=== PATIENT | female | born 1935 | race Caucasian/White ===

== ENCOUNTER 2023-10-10 07:15 | Emergency (ER) | payer MEDICARE ==
[~2023-10-10] VITALS: Ht 157.5 cm; Wt 55.5 kg
[~2023-10-10 07:15] MED LIST: AMLO2.5T2 PO; APIX2.5T PO; DORZ10DR10 EACHEYE; LABE100T8 PO; LOSA-415 PO; PRAV40TA3 PO; XAL0.005OS OP
[2023-10-10] MEDS ORDERED: iohexol 350MG/ML 100ml bottle IV ONE (07:52)
[2023-10-10 07:53] LABS: BASOPHILS % (AUTO) 0.8 % (0-1); EOSINOPHILS # (AUTO) 0.1 X10'3 (0-0.9); EOSINOPHILS % (AUTO) 1.5 % (0-6); HEMATOCRIT 41.4 % (35.0-45.0); HEMOGLOBIN 13.7 g/dl (12.0-16.0); LYMPHOCYTES # (AUTO) 2.1 X10'3 (1.1-4.8); LYMPHOCYTES % (AUTO) 46.4 % (21-51); MEAN CORPUSCULAR HEMOGLOBIN 29.4 PG (27.0-31.0); MEAN CORPUSCULAR HGB CONC 33.2 g/dL (33.0-36.5); MEAN CORPUSCULAR VOLUME 88.6 FL (78-98); MEAN PLATELET VOLUME 7.7 FL (7.4-10.4); MONOCYTES # (AUTO) 0.5 X10'3 (0-0.9); MONOCYTES % (AUTO) 10.8 % (2-12); NEUTROPHILS # (AUTO) 1.9 X10'3 (1.8-7.7); NEUTROPHILS % (AUTO) 40.5 % (42-75); PLATELET COUNT 206 X10'3 (140-440); RED BLOOD COUNT 4.67 X10'6 (4.20-5.60); RED CELL DISTRIBUTION WIDTH 14.7 % (11.5-14.5); WHITE BLOOD COUNT 4.6 X10'3 (4.5-11.0)
[2023-10-10 08:12] LABS: PROTHROMBIN TIME 10.7 SECONDS (9.0-12.0)
[2023-10-10 09:05] LABS: BILIRUBIN,URINE NEGATIVE (Neg); CLARITY,URINE CLEAR (Clear); COLOR,URINE STRAW (Yellow); GLUCOSE, URINE NEGATIVE (Neg); KETONES,URINE NEGATIVE (Neg); LEUKOCYTE ESTERASE ,URINE NEGATIVE (Neg); NITRITES, URINE NEGATIVE (Neg); OCCULT BLOOD,URINE TRACE-INTACT (Neg); PROTEIN,URINE NEGATIVE (Neg); UROBILINOGEN,URINE 0.2 E.U/dL (0.2-1.0)
[2023-10-10 09:06] LABS: ALANINE AMINOTRANSFERASE 19 U/L (12-78); ALBUMIN 3.8 G/DL (3.4-5.0); ALBUMIN/GLOBULIN RATIO 1.1 (1.1-1.5); ALKALINE PHOSPHATASE 65 IU/L (46-116); ANION GAP 10 (8-16); ASPARTATE AMINO TRANSFERASE 21 U/L (10-37); BLOOD UREA NITROGEN 20 MG/DL (7-18); BUN/CREATININE RATIO 16.7 (10.0-20.0); CALCIUM 9.1 MG/DL (8.5-10.1); CHLORIDE 105 MMOL/L (99-107); GLUCOSE 101 MG/DL (70-104); POTASSIUM 3.3 MMOL/L (3.5-5.1); SODIUM 139 MMOL/L (135-145); TOTAL CARBON DIOXIDE 24.5 MMOL/L (24-32); TOTAL PROTEIN 7.3 G/DL (6.4-8.2); eCRCL 26 ML/MIN; eGFR 42 ML/MIN
[2023-10-10 09:14] LABS: UA COLLECTION TYPE CLN CATCH MIDSTREAM
[2023-10-10 09:15] LABS: BACTERIA,URINE NONE SEEN /HPF (Neg); RBC,URINE 0-2 /HPF (0-2); SQUAMOUS EPITHELIAL CELL,UR FEW /LPF (FEW); WBC,URINE 0-4 /HPF (0-4)
[2023-10-10 09:34] VITALS: TEMP 98; O2SAT 95
[2023-10-10] MEDS: potassium Cl 20 mEq SR tablet PO STA (10:24)
[2023-10-10 12:07] VITALS: BP 140/82; PULSE 104; RESP 22
== END 2023-10-10 11:55 | disposition home or self-care (01) ==
LOC: ER 07:16
DX: R53.1 Weakness (principal); I48.91 Unspecified atrial fibrillation; R47.81 Slurred speech
CPT/HCPCS: 36415; 70450; 70496; 70498; 71045; 80053; 81001; 82948; 85025; 85610; 86885; 86900; 86901; 93005; 99285; J3490; Q9967

== ENCOUNTER 2023-10-11 10:38 | Emergency (ER) | payer MEDICARE ==
[~2023-10-11] VITALS: Ht 157.5 cm; Wt 54.3 kg
[2023-10-11 11:33] VITALS: TEMP 98
[2023-10-11 12:54] LABS: BASOPHILS % (AUTO) 0.7 % (0-1); EOSINOPHILS % (AUTO) 0.4 % (0-6); HEMATOCRIT 40.8 % (35.0-45.0); HEMOGLOBIN 13.6 g/dl (12.0-16.0); LYMPHOCYTES # (AUTO) 1.1 X10'3 (1.1-4.8); LYMPHOCYTES % (AUTO) 19.6 % (21-51); MEAN CORPUSCULAR HEMOGLOBIN 29.3 PG (27.0-31.0); MEAN CORPUSCULAR HGB CONC 33.4 g/dL (33.0-36.5); MEAN CORPUSCULAR VOLUME 87.7 FL (78-98); MONOCYTES # (AUTO) 0.4 X10'3 (0-0.9); MONOCYTES % (AUTO) 7.5 % (2-12); NEUTROPHILS # (AUTO) 4.1 X10'3 (1.8-7.7); NEUTROPHILS % (AUTO) 71.8 % (42-75); PLATELET COUNT 215 X10'3 (140-440); RED BLOOD COUNT 4.65 X10'6 (4.20-5.60); WHITE BLOOD COUNT 5.7 X10'3 (4.5-11.0)
[2023-10-11 13:09] LABS: ALANINE AMINOTRANSFERASE 15 U/L (12-78); ALBUMIN 3.7 G/DL (3.4-5.0); ALBUMIN/GLOBULIN RATIO 1.2 (1.1-1.5); ALKALINE PHOSPHATASE 69 IU/L (46-116); ANION GAP 11 (8-16); ASPARTATE AMINO TRANSFERASE 23 U/L (10-37); BILIRUBIN,TOTAL 0.9 MG/DL (0.1-1.0); BLOOD UREA NITROGEN 27 MG/DL (7-18); BUN/CREATININE RATIO 20.8 (10.0-20.0); CALCIUM 8.7 MG/DL (8.5-10.1); CHLORIDE 106 MMOL/L (99-107); GLUCOSE 116 MG/DL (70-104); POTASSIUM 3.9 MMOL/L (3.5-5.1); SODIUM 141 MMOL/L (135-145); TOTAL CARBON DIOXIDE 24.4 MMOL/L (24-32); TOTAL PROTEIN 6.9 G/DL (6.4-8.2); eCRCL 24 ML/MIN; eGFR 39 ML/MIN
[2023-10-11 13:15] LABS: APTT 26 SECONDS (22-32)
[2023-10-11 13:26] LABS: THYROID STIMULATING HORMONE 1.12 ulU/ml (0.34-4.50)
[2023-10-11 15:14] LABS: BILIRUBIN,URINE NEGATIVE (Neg); CLARITY,URINE SLIGHTLY CLOUDY (Clear); COLOR,URINE YELLOW (Yellow); GLUCOSE, URINE NEGATIVE (Neg); KETONES,URINE 15 mg/dl (Neg); LEUKOCYTE ESTERASE ,URINE NEGATIVE (Neg); NITRITES, URINE NEGATIVE (Neg); OCCULT BLOOD,URINE TRACE-INTACT (Neg); PROTEIN,URINE 30 mg/dl (Neg); UROBILINOGEN,URINE 0.2 E.U/dL (0.2-1.0)
[2023-10-11 15:19] LABS: UA COLLECTION TYPE CLN CATCH MIDSTREAM
[2023-10-11 15:21] LABS: CAL OXALATE CRYSTALS FEW /HPF (NEGATIVE)
[2023-10-11 15:22] LABS: BACTERIA,URINE FEW /HPF (Neg); CELLULAR CAST 0-4 /LPF (NEGATIVE); SQUAMOUS EPITHELIAL CELL,UR FEW /LPF (FEW); WBC,URINE 0-4 /HPF (0-4)
[2023-10-11 15:23] LABS: AMORPHOUS URATES 1+; COARSE GRANULAR CAST 0-3 /LPF (NEGATIVE); MUCUS STRANDS FEW /LPF (Neg)
[2023-10-11 16:11] VITALS: BP 142/84; PULSE 87; RESP 16; O2SAT 96
== END 2023-10-11 16:17 | disposition home or self-care (01) ==
LOC: ER 10:39
DX: R53.81 Other malaise (principal); R47.81 Slurred speech; Z88.8 Allergy status to other drugs, medicaments and biological substances; Z79.899 Other long term (current) drug therapy
CPT/HCPCS: 36415; 80053; 81001; 84439; 84443; 84484; 85025; 85610; 85730; 87502; 87503; 93005; 99285

== ENCOUNTER 2023-10-15 05:58 | Emergency (ER) | payer MEDICARE ==
[~2023-10-15] VITALS: Ht 162.6 cm; Wt 54.8 kg
[2023-10-15] MEDS ORDERED: PRED20TA PO (07:10)
[2023-10-15] MEDS ORDERED: AMOX-117 PO (07:10)
[2023-10-15 07:55] VITALS: BP 156/85; PULSE 83; RESP 16; TEMP 98.8; O2SAT 98
== END 2023-10-15 07:56 | disposition home or self-care (01) ==
LOC: ER 05:58
DX: K14.0 Glossitis (principal); Z91.018 Allergy to other foods
CPT/HCPCS: 99283

== ENCOUNTER 2024-01-09 03:58 | Emergency (ER) | payer MEDICARE ==
[~2024-01-09] VITALS: Ht 157.5 cm; Wt 56.4 kg
[2024-01-09 03:59] VITALS: TEMP 98.9
[2024-01-09 04:35] LABS: HEMOGLOBIN 13.7 g/dl (12.0-16.0); MEAN PLATELET VOLUME 8.2 FL (7.4-10.4)
[2024-01-09 04:36] LABS: BASOPHILS # (AUTO) 0.1 X10'3 (0-0.2); EOSINOPHILS # (AUTO) 0.1 X10'3 (0-0.9); EOSINOPHILS % (AUTO) 2.2 % (0-6); HEMATOCRIT 41.8 % (35.0-45.0); LYMPHOCYTES # (AUTO) 1.4 X10'3 (1.1-4.8); LYMPHOCYTES % (AUTO) 21.2 % (21-51); MEAN CORPUSCULAR HEMOGLOBIN 29.4 PG (27.0-31.0); MEAN CORPUSCULAR HGB CONC 32.9 g/dL (33.0-36.5); MEAN CORPUSCULAR VOLUME 89.3 FL (78-98); MONOCYTES # (AUTO) 0.8 X10'3 (0-0.9); MONOCYTES % (AUTO) 12.1 % (2-12); NEUTROPHILS # (AUTO) 4.2 X10'3 (1.8-7.7); NEUTROPHILS % (AUTO) 63.5 % (42-75); PLATELET COUNT 213 X10'3 (140-440); RED BLOOD COUNT 4.67 X10'6 (4.20-5.60); RED CELL DISTRIBUTION WIDTH 14.8 % (11.5-14.5); WHITE BLOOD COUNT 6.5 X10'3 (4.5-11.0)
[2024-01-09 04:46] LABS: PROTHROMBIN TIME 10.4 SECONDS (9.0-12.0)
[2024-01-09 04:54] LABS: ALBUMIN 3.7 G/DL (3.4-5.0); ANION GAP 9 (8-16); BLOOD UREA NITROGEN 16 MG/DL (7-18); BUN/CREATININE RATIO 16.3 (10.0-20.0); CALCIUM 9.6 MG/DL (8.5-10.1); CHLORIDE 105 MMOL/L (99-107); CREATININE 0.98 MG/DL (0.40-0.90); GLUCOSE 107 MG/DL (70-104); LIPASE 83 U/L (16-77); PRO BRAIN NATRIURETIC PEPTIDE 560 PG/ML (0-450); SODIUM 141 MMOL/L (135-145); TOTAL CARBON DIOXIDE 26.7 MMOL/L (24-32); eCRCL 31 ML/MIN; eGFR 54 ML/MIN
[2024-01-09 04:55] LABS: POTASSIUM 3.8 MMOL/L (3.5-5.1)
[2024-01-09 05:56] LABS: BILIRUBIN,URINE NEGATIVE (Neg); CLARITY,URINE CLEAR (Clear); COLOR,URINE STRAW (Yellow); GLUCOSE, URINE NEGATIVE (Neg); KETONES,URINE NEGATIVE (Neg); LEUKOCYTE ESTERASE ,URINE NEGATIVE (Neg); NITRITES, URINE NEGATIVE (Neg); OCCULT BLOOD,URINE TRACE-INTACT (Neg); PROTEIN,URINE NEGATIVE (Neg); UROBILINOGEN,URINE 0.2 E.U/dL (0.2-1.0)
[2024-01-09 05:57] LABS: UA COLLECTION TYPE NON-SPECIFIED
[2024-01-09 06:02] VITALS: BP 141/80; PULSE 79; RESP 20; O2SAT 96
[2024-01-09 06:05] LABS: BACTERIA,URINE NONE SEEN /HPF (Neg); MUCUS STRANDS NONE SEEN /LPF (Neg); RBC,URINE 0-2 /HPF (0-2); SQUAMOUS EPITHELIAL CELL,UR NONE SEEN /LPF (FEW); WBC,URINE 0-4 /HPF (0-4)
== END 2024-01-09 06:16 | disposition home or self-care (01) ==
LOC: ER 03:59
DX: R10.84 Generalized abdominal pain (principal); Z20.822 Contact with and (suspected) exposure to COVID-19; I49.3 Ventricular premature depolarization; I48.91 Unspecified atrial fibrillation; Z91.018 Allergy to other foods; Z79.899 Other long term (current) drug therapy
CPT/HCPCS: 36415; 71045; 80048; 81001; 83690; 83735; 83880; 84145; 84484; 85025; 85610; 87502; 87503; 87811; 93005; 99285

== ENCOUNTER 2024-01-20 06:42 | Emergency (ER) | payer MEDICARE ==
[~2024-01-20] VITALS: Ht 157.5 cm; Wt 48.0 kg
[2024-01-20 09:04] LABS: ALBUMIN 3.8 G/DL (3.4-5.0); ANION GAP 11 (8-16); BLOOD UREA NITROGEN 19 MG/DL (7-18); BUN/CREATININE RATIO 20.2 (10.0-20.0); CALCIUM 9.6 MG/DL (8.5-10.1); CHLORIDE 104 MMOL/L (99-107); CREATININE 0.94 MG/DL (0.40-0.90); GLUCOSE 108 MG/DL (70-104); POTASSIUM 3.4 MMOL/L (3.5-5.1); SODIUM 141 MMOL/L (135-145); TOTAL CARBON DIOXIDE 25.9 MMOL/L (24-32); eCRCL 31 ML/MIN; eGFR 56 ML/MIN
[2024-01-20 09:59] VITALS: BP 163/102; PULSE 109; RESP 15; TEMP 97.9; O2SAT 97
== END 2024-01-20 10:02 | disposition home or self-care (01) ==
LOC: ER 06:42
DX: R53.1 Weakness (principal); Z91.09 Other allergy status, other than to drugs and biological substances; Z79.899 Other long term (current) drug therapy
CPT/HCPCS: 36415; 71045; 80048; 84484; 87070; 93005; 99285

== ENCOUNTER 2024-07-16 23:06 | Inpatient (IN) | payer MEDICARE ==
[~2024-07-16] VITALS: Ht 170.2 cm; Wt 50.0 kg
[2024-07-16 23:43] LABS: BASOPHILS # (AUTO) 0.1 X10'3 (0-0.2); BASOPHILS % (AUTO) 0.7 % (0-1); EOSINOPHILS % (AUTO) 0.4 % (0-6); HEMATOCRIT 36.9 % (35.0-45.0); HEMOGLOBIN 12.8 g/dl (12.0-16.0); LYMPHOCYTES # (AUTO) 1.5 X10'3 (1.1-4.8); LYMPHOCYTES % (AUTO) 20.4 % (21-51); MEAN CORPUSCULAR HEMOGLOBIN 30.1 PG (27.0-31.0); MEAN CORPUSCULAR HGB CONC 34.7 g/dL (33.0-36.5); MEAN CORPUSCULAR VOLUME 86.8 FL (78-98); MEAN PLATELET VOLUME 7.5 FL (7.4-10.4); MONOCYTES # (AUTO) 0.5 X10'3 (0-0.9); MONOCYTES % (AUTO) 6.9 % (2-12); NEUTROPHILS # (AUTO) 5.1 X10'3 (1.8-7.7); NEUTROPHILS % (AUTO) 71.6 % (42-75); PLATELET COUNT 262 X10'3 (140-440); RED BLOOD COUNT 4.25 X10'6 (4.20-5.60); RED CELL DISTRIBUTION WIDTH 14.4 % (11.5-14.5); WHITE BLOOD COUNT 7.2 X10'3 (4.5-11.0)
[2024-07-16 23:55] LABS: APTT 23 SECONDS (22-32); INR 1.1 INR; PROTHROMBIN TIME 11.5 SECONDS (9.0-12.0)
[2024-07-17 00:01] LABS: ALBUMIN 3.8 G/DL (3.4-5.0); ANION GAP 13 (8-16); BLOOD UREA NITROGEN 24 MG/DL (7-18); BUN/CREATININE RATIO 17.1 (10.0-20.0); CALCIUM 9.7 MG/DL (8.5-10.1); CHLORIDE 101 MMOL/L (99-107); GLUCOSE 110 MG/DL (70-104); POTASSIUM 3.5 MMOL/L (3.5-5.1); SODIUM 138 MMOL/L (135-145); TOTAL CARBON DIOXIDE 24.1 MMOL/L (24-32); eCRCL 22 ML/MIN; eGFR 35 ML/MIN
[2024-07-17] MEDS: normal saline 1000ml 1,000 ML IV ONE (00:36)
[2024-07-17] MEDS: pantoprazole 40 MG vial IV ONE (00:36)
[2024-07-17] MEDS ORDERED: magnesium Cl slow-release 64mg tablet PO PRN (01:15)
[2024-07-17] MEDS ORDERED: ondansetron/PF 4mg/2ml inj IV PRN (01:15)
[2024-07-17] MEDS ORDERED: potassium Cl 20 mEq SR tablet PO PRN (01:15)
[2024-07-17] MEDS ORDERED: magnesium sulf-water 4G/100mL 100 ML IV PRN (01:15)
[2024-07-17] MEDS ORDERED: potassium Cl 40MEQ/1/2NS 520ml 520 ML IV PRN (01:15)
[2024-07-17] MEDS ORDERED: magnesium sulf-water 2g/50mL 50 ML IV PRN (01:15)
[2024-07-17 02:03] LABS: OCCULT BLOOD STOOL POSITIVE (Neg)
[2024-07-17] MEDS ORDERED: ESCI5TAB17 PO (02:21)
[2024-07-17] MEDS: normal saline 1000ml 1,000 ML IV SCH (02:34)
[2024-07-17 02:40] LABS: BILIRUBIN,URINE NEGATIVE (Neg); CLARITY,URINE CLEAR (Clear); COLOR,URINE YELLOW (Yellow); GLUCOSE, URINE NEGATIVE (Neg); KETONES,URINE 15 mg/dl (Neg); LEUKOCYTE ESTERASE ,URINE NEGATIVE (Neg); NITRITES, URINE NEGATIVE (Neg); OCCULT BLOOD,URINE SMALL (Neg); PROTEIN,URINE NEGATIVE (Neg); UROBILINOGEN,URINE 0.2 E.U/dL (0.2-1.0)
[2024-07-17 02:41] LABS: UA COLLECTION TYPE CLN CATCH MIDSTREAM
[2024-07-17] MEDS: dextrose 5%-1/2 normal saline 1,000 ML IV SCH (02:54)
[2024-07-17 02:56] LABS: BACTERIA,URINE 1+ /HPF (Neg); RBC,URINE 0-2 /HPF (0-2); SQUAMOUS EPITHELIAL CELL,UR FEW /LPF (FEW); WBC,URINE 0-4 /HPF (0-4)
[2024-07-17 03:12] LABS: MEAN CORPUSCULAR HEMOGLOBIN 29.5 PG (27.0-31.0); MEAN CORPUSCULAR HGB CONC 33.3 g/dL (33.0-36.5); MEAN CORPUSCULAR VOLUME 88.6 FL (78-98); MEAN PLATELET VOLUME 7.7 FL (7.4-10.4); PLATELET COUNT 280 X10'3 (140-440); RED BLOOD COUNT 4.06 X10'6 (4.20-5.60); RED CELL DISTRIBUTION WIDTH 14.6 % (11.5-14.5); WHITE BLOOD COUNT 8.1 X10'3 (4.5-11.0)
[2024-07-17 03:28] LABS: MAGNESIUM 1.8 MG/DL (1.5-2.4); POTASSIUM 3.8 MMOL/L (3.5-5.1)
[2024-07-17] MEDS: K and/or MAG REPLACEMENT MC SCH (07:37)
[2024-07-17] MEDS: docusate sod 100mg capsule PO SCH (07:38)
[2024-07-17] MEDS: pantoprazole 40 MG vial IV SCH (07:42)
[2024-07-17] MEDS ORDERED: pantoprazole 40 MG vial IV SCH (08:00)
[2024-07-17 10:17] LABS: HEMATOCRIT 36.1 % (35.0-45.0); HEMOGLOBIN 12.3 g/dl (12.0-16.0); MEAN CORPUSCULAR HEMOGLOBIN 29.7 PG (27.0-31.0); MEAN CORPUSCULAR VOLUME 87.4 FL (78-98); MEAN PLATELET VOLUME 7.6 FL (7.4-10.4); PLATELET COUNT 284 X10'3 (140-440); RED BLOOD COUNT 4.14 X10'6 (4.20-5.60); RED CELL DISTRIBUTION WIDTH 14.4 % (11.5-14.5); WHITE BLOOD COUNT 6.4 X10'3 (4.5-11.0)
[2024-07-17 10:46] LABS: % IRON SATURATION 12 % (11-46); IRON 33 UG/DL (49-151); TOTAL IRON BINDING CAPACITY 265 UG/DL (259-388)
[2024-07-17 12:23] VITALS: BP 129/76; PULSE 90; RESP 18; TEMP 97.6; O2SAT 96
[2024-07-17 15:40] LABS: HEMATOCRIT 35.5 % (35.0-45.0); MEAN CORPUSCULAR HEMOGLOBIN 29.7 PG (27.0-31.0); MEAN CORPUSCULAR HGB CONC 33.7 g/dL (33.0-36.5); MEAN CORPUSCULAR VOLUME 88.1 FL (78-98); MEAN PLATELET VOLUME 7.5 FL (7.4-10.4); PLATELET COUNT 268 X10'3 (140-440); RED BLOOD COUNT 4.03 X10'6 (4.20-5.60); RED CELL DISTRIBUTION WIDTH 14.4 % (11.5-14.5); WHITE BLOOD COUNT 6.2 X10'3 (4.5-11.0)
[2024-07-17 17:33] VITALS: RESP 16; O2SAT 94
[2024-07-17 18:00] VITALS: BP 135/78; PULSE 96; RESP 19; TEMP 97.8; O2SAT 98
[2024-07-17] MEDS: acetaminophen 325mg tablet PO PRN (19:24)
[2024-07-17 21:38] LABS: HEMATOCRIT 34.4 % (35.0-45.0); HEMOGLOBIN 11.7 g/dl (12.0-16.0); MEAN CORPUSCULAR HEMOGLOBIN 29.9 PG (27.0-31.0); MEAN PLATELET VOLUME 7.4 FL (7.4-10.4); PLATELET COUNT 254 X10'3 (140-440); RED BLOOD COUNT 3.91 X10'6 (4.20-5.60); RED CELL DISTRIBUTION WIDTH 14.4 % (11.5-14.5); WHITE BLOOD COUNT 6.6 X10'3 (4.5-11.0)
[2024-07-17 22:00] VITALS: BP 124/66; PULSE 89; RESP 14; TEMP 98.7; O2SAT 97
[2024-07-18 03:25] LABS: BASOPHILS # (AUTO) 0.1 X10'3 (0-0.2); BASOPHILS % (AUTO) 0.8 % (0-1); EOSINOPHILS # (AUTO) 0.1 X10'3 (0-0.9); EOSINOPHILS % (AUTO) 1.6 % (0-6); HEMATOCRIT 34.3 % (35.0-45.0); HEMOGLOBIN 11.7 g/dl (12.0-16.0); LYMPHOCYTES % (AUTO) 32.2 % (21-51); MEAN CORPUSCULAR HEMOGLOBIN 29.7 PG (27.0-31.0); MEAN CORPUSCULAR HGB CONC 34.2 g/dL (33.0-36.5); MEAN CORPUSCULAR VOLUME 86.9 FL (78-98); MEAN PLATELET VOLUME 6.9 FL (7.4-10.4); MONOCYTES # (AUTO) 0.6 X10'3 (0-0.9); MONOCYTES % (AUTO) 9.9 % (2-12); NEUTROPHILS # (AUTO) 3.4 X10'3 (1.8-7.7); NEUTROPHILS % (AUTO) 55.5 % (42-75); PLATELET COUNT 244 X10'3 (140-440); RED BLOOD COUNT 3.95 X10'6 (4.20-5.60); RED CELL DISTRIBUTION WIDTH 14.7 % (11.5-14.5); WHITE BLOOD COUNT 6.2 X10'3 (4.5-11.0)
[2024-07-18 03:52] LABS: ALANINE AMINOTRANSFERASE 17 U/L (12-78); ALBUMIN 3.1 G/DL (3.4-5.0); ALBUMIN/GLOBULIN RATIO 0.9 (1.1-1.5); ALKALINE PHOSPHATASE 66 IU/L (46-116); ANION GAP 10 (8-16); ASPARTATE AMINO TRANSFERASE 19 U/L (10-37); BILIRUBIN,TOTAL 0.6 MG/DL (0.1-1.0); BLOOD UREA NITROGEN 14 MG/DL (7-18); BUN/CREATININE RATIO 16.1 (10.0-20.0); CALCIUM 8.8 MG/DL (8.5-10.1); CHLORIDE 105 MMOL/L (99-107); CREATININE 0.87 MG/DL (0.40-0.90); GLUCOSE 108 MG/DL (70-104); MAGNESIUM 1.7 MG/DL (1.5-2.4); SODIUM 141 MMOL/L (135-145); TOTAL CARBON DIOXIDE 26.1 MMOL/L (24-32); TOTAL PROTEIN 6.4 G/DL (6.4-8.2); eCRCL 35 ML/MIN; eGFR 61 ML/MIN
[2024-07-18 04:23] LABS: POTASSIUM 2.9 MMOL/L (3.5-5.1)
[2024-07-18] MEDS ORDERED: potassium Cl 40MEQ/1/2NS 520ml 520 ML IV PRN (04:30)
[2024-07-18] MEDS ORDERED: potassium Cl 20 mEq SR tablet PO PRN (04:30)
[2024-07-18] MEDS ORDERED: magnesium sulf-water 2g/50mL 50 ML IV PRN (04:30)
[2024-07-18] MEDS ORDERED: magnesium sulf-water 4G/100mL 100 ML IV PRN (04:30)
[2024-07-18] MEDS ORDERED: magnesium Cl slow-release 64mg tablet PO PRN (04:30)
[2024-07-18] MEDS: potassium Cl 20 mEq SR tablet PO PRN ×2 (04:32→16:57)
[2024-07-18 06:30] VITALS: BP 147/74; PULSE 81; RESP 13; TEMP 98.1; O2SAT 97
[2024-07-18] MEDS: K and/or MAG REPLACEMENT MC SCH (07:23)
[2024-07-18 07:51] VITALS: RESP 13; O2SAT 97
[2024-07-18 09:32] LABS: HEMATOCRIT 37.7 % (35.0-45.0); HEMOGLOBIN 12.6 g/dl (12.0-16.0); MEAN CORPUSCULAR HEMOGLOBIN 29.6 PG (27.0-31.0); MEAN CORPUSCULAR HGB CONC 33.6 g/dL (33.0-36.5); MEAN CORPUSCULAR VOLUME 88.3 FL (78-98); MEAN PLATELET VOLUME 7.8 FL (7.4-10.4); PLATELET COUNT 289 X10'3 (140-440); RED BLOOD COUNT 4.27 X10'6 (4.20-5.60); RED CELL DISTRIBUTION WIDTH 14.3 % (11.5-14.5); WHITE BLOOD COUNT 6.4 X10'3 (4.5-11.0)
[2024-07-18 10:00] VITALS: BP 114/81; PULSE 92; RESP 16; TEMP 97.8; O2SAT 97
[2024-07-18 15:06] LABS: HEMATOCRIT 36.3 % (35.0-45.0); HEMOGLOBIN 12.1 g/dl (12.0-16.0); MEAN CORPUSCULAR HEMOGLOBIN 29.3 PG (27.0-31.0); MEAN CORPUSCULAR HGB CONC 33.3 g/dL (33.0-36.5); MEAN CORPUSCULAR VOLUME 87.9 FL (78-98); MEAN PLATELET VOLUME 7.1 FL (7.4-10.4); PLATELET COUNT 280 X10'3 (140-440); RED BLOOD COUNT 4.12 X10'6 (4.20-5.60); RED CELL DISTRIBUTION WIDTH 14.7 % (11.5-14.5); WHITE BLOOD COUNT 5.7 X10'3 (4.5-11.0)
[2024-07-18 18:30] VITALS: BP 150/83; PULSE 65; RESP 15; TEMP 97.8; O2SAT 96
[2024-07-18 21:21] LABS: HEMATOCRIT 35.3 % (35.0-45.0); HEMOGLOBIN 12.1 g/dl (12.0-16.0); MEAN CORPUSCULAR HEMOGLOBIN 29.9 PG (27.0-31.0); MEAN CORPUSCULAR HGB CONC 34.2 g/dL (33.0-36.5); MEAN CORPUSCULAR VOLUME 87.5 FL (78-98); MEAN PLATELET VOLUME 7.2 FL (7.4-10.4); PLATELET COUNT 252 X10'3 (140-440); RED BLOOD COUNT 4.03 X10'6 (4.20-5.60); RED CELL DISTRIBUTION WIDTH 14.6 % (11.5-14.5); WHITE BLOOD COUNT 7.6 X10'3 (4.5-11.0)
[2024-07-18 22:00] VITALS: BP 160/85; PULSE 89; RESP 16; TEMP 97.9; O2SAT 96
[2024-07-18 22:43] VITALS: O2SAT 96
[2024-07-19 06:30] VITALS: BP 166/90; PULSE 85; RESP 16; TEMP 98.6; O2SAT 96
[2024-07-19] MEDS: ESCITALOPRAM 10 mg tablet 10 MG TABLET PO SCH (07:14)
[2024-07-19] MEDS: apixaban 2.5mg tablet PO SCH (07:14)
[2024-07-19] MEDS: losartan 25mg tablet PO SCH (07:14)
[2024-07-19] MEDS: atorvastatin 10mg tablet PO SCH (07:15)
[2024-07-19] MEDS: amLODIPine 5mg tablet PO SCH (07:15)
[2024-07-19] MEDS: dorzolamide/timolol (Cosopt) ophthalmic drops 10ml bottle EACHEYE SCH (07:15)
[2024-07-19] MEDS: labetalol 100mg tablet PO SCH (07:15)
[2024-07-19 07:26] LABS: BASOPHILS % (AUTO) 0.9 % (0-1); EOSINOPHILS # (AUTO) 0.3 X10'3 (0-0.9); EOSINOPHILS % (AUTO) 4.8 % (0-6); HEMATOCRIT 35.3 % (35.0-45.0); HEMOGLOBIN 12.2 g/dl (12.0-16.0); LYMPHOCYTES # (AUTO) 1.6 X10'3 (1.1-4.8); LYMPHOCYTES % (AUTO) 30.8 % (21-51); MEAN CORPUSCULAR HEMOGLOBIN 30.2 PG (27.0-31.0); MEAN CORPUSCULAR HGB CONC 34.7 g/dL (33.0-36.5); MONOCYTES # (AUTO) 0.6 X10'3 (0-0.9); MONOCYTES % (AUTO) 10.8 % (2-12); NEUTROPHILS # (AUTO) 2.8 X10'3 (1.8-7.7); NEUTROPHILS % (AUTO) 52.7 % (42-75); PLATELET COUNT 242 X10'3 (140-440); RED BLOOD COUNT 4.05 X10'6 (4.20-5.60); RED CELL DISTRIBUTION WIDTH 14.6 % (11.5-14.5); WHITE BLOOD COUNT 5.3 X10'3 (4.5-11.0)
[2024-07-19 07:29] VITALS: RESP 14; O2SAT 96
[2024-07-19 07:46] LABS: ALANINE AMINOTRANSFERASE 11 U/L (12-78); ALBUMIN 3.2 G/DL (3.4-5.0); ALKALINE PHOSPHATASE 64 IU/L (46-116); ANION GAP 7 (8-16); ASPARTATE AMINO TRANSFERASE 20 U/L (10-37); BILIRUBIN,TOTAL 0.7 MG/DL (0.1-1.0); BLOOD UREA NITROGEN 10 MG/DL (7-18); BUN/CREATININE RATIO 10.1 (10.0-20.0); CALCIUM 9.3 MG/DL (8.5-10.1); CHLORIDE 107 MMOL/L (99-107); CREATININE 0.99 MG/DL (0.40-0.90); GLUCOSE 119 MG/DL (70-104); MAGNESIUM 1.6 MG/DL (1.5-2.4); POTASSIUM 3.6 MMOL/L (3.5-5.1); SODIUM 141 MMOL/L (135-145); TOTAL CARBON DIOXIDE 27.1 MMOL/L (24-32); TOTAL PROTEIN 6.5 G/DL (6.4-8.2); eCRCL 31 ML/MIN; eGFR 53 ML/MIN
[2024-07-19 10:00] VITALS: BP 100/60; PULSE 65; RESP 16; TEMP 98.3; O2SAT 98
[2024-07-19] MEDS ORDERED: PANT-47 PO (15:45)
== END 2024-07-19 11:50 | disposition home or self-care (01) | DRG 377 ==
LOC: ER 23:07 → ED HOLD 07-17 01:18 → ORTHO 4S 07-17 12:00
PROVIDERS: ADMIT Internal Medicine Critical Care Medicine; ATTEND Internal Medicine
PROC: BW211ZZ Computerized Tomography (CT Scan) of Abdomen and Pelvis using Low Osmolar Contrast (ICD-10-PCS; principal; 2024-07-16)
DX: K92.2 Gastrointestinal hemorrhage, unspecified (principal); G93.41 Metabolic encephalopathy; N17.9 Acute kidney failure, unspecified; E86.0 Dehydration; F32.A Depression, unspecified; E87.6 Hypokalemia; Z20.822 Contact with and (suspected) exposure to COVID-19; I48.91 Unspecified atrial fibrillation; Z66 Do not resuscitate; E78.5 Hyperlipidemia, unspecified; F03.90 Unspecified dementia, unspecified severity, without behavioral disturbance, psychotic disturbance, mood disturbance, and anxiety; Z83.3 Family history of diabetes mellitus; Z79.899 Other long term (current) drug therapy; Z79.01 Long term (current) use of anticoagulants; W19.XXXA Unspecified fall, initial encounter; Y92.098 Other place in other non-institutional residence as the place of occurrence of the external cause
CPT/HCPCS: 36415; 70450; 71045; 72125; 74176; 80048; 80053; 81001; 82272; 82728; 83540; 83550; 83735; 84132; 84145; 84484; 85025; 85027; 85610; 85730; 86885; 86900; 86901; 87502; 87503; 87811; 93005; 93306; 97116; 97162; G0378; J2470; J3490; J7030; J7070